=== PATIENT | female | born 1940 | race Two or more races ===

== ENCOUNTER 2017-03-20 11:45 | Emergency (ER) | payer OTHER ==
[~2017-03-20] VITALS: Ht 154.9 cm; Wt 59.9 kg
[~2017-03-20 11:45] MED LIST: ALEN35TA29 PO; BENA10TA2 PO; LEVO50TA8 PO; OMEP40CA37 PO
[2017-03-20] MEDS ORDERED: BENAZEPRIL HCL 20 MG TABLET PO (12:05)
[2017-03-20] MEDS ORDERED: PREDNISONE 5 MG TABLET PO (12:05)
[2017-03-20] MEDS ORDERED: CALC-860 PO (12:05)
[2017-03-20] MEDS ORDERED: AMLO5TAB2 PO (12:05)
[2017-03-20] MEDS ORDERED: PROLIA 60 MG/ML SYRINGE SQ (12:05)
[2017-03-20] MEDS ORDERED: METHOTREXATE 2.5 MG TABLET PO (12:05)
[2017-03-20] MEDS ORDERED: FOLI1TAB16 PO (12:05)
[2017-03-20] MEDS ORDERED: OMEG1CAP74 PO (12:05)
[2017-03-20] MEDS ORDERED: OMEPRAZOLE DR 20 MG CAPSULE PO (12:05)
[2017-03-20 12:55] LABS: BASOPHILS % (AUTO) 0.8 % (0.0-2.0); EOSINOPHILS # (AUTO) 0.3 K/uL (0.0-0.7); EOSINOPHILS % (AUTO) 5.3 % (0.0-7.0); HEMATOCRIT 35.8 % (37-47); HEMOGLOBIN 11.8 G/DL (12.0-16.0); LYMPHOCYTES # (AUTO) 1.7 K/UL (0.8-4.8); LYMPHOCYTES % (AUTO) 27.4 % (20.5-51.5); MEAN CORPUSCULAR HEMOGLOBIN 32.8 UUG (27.0-31.0); MEAN CORPUSCULAR HGB CONC 33 g/dL (32.0-37.0); MEAN CORPUSCULAR VOLUME 99.9 FL (81.0-99.0); MONOCYTES # (AUTO) 0.6 K/UL (0.1-1.30); MONOCYTES % (AUTO) 9.8 % (0.0-11.0); NEUTROPHILS # (AUTO) 3.5 K/UL (1.8-8.9); NEUTROPHILS % (AUTO) 56.7 % (38.5-71.5); PLATELET COUNT (AUTO) 333 K/UL (150-450); RED BLOOD CELL COUNT(AUTO) 3.58 MIL/UL (4.2-5.4); WHITE BLOOD COUNT (AUTO) 6.1 K/UL (4.0-11.2)
[2017-03-20 13:05] LABS: CARBON DIOXIDE 28 mmol/L (21-32); CHLORIDE 105 mmol/L (98-107); CREATININE 1.2 mg/dL (0.6-1.3); GLUCOSE 89 mg/dL (74-106); POTASSIUM 4.6 mmol/L (3.5-5.1); UREA NITROGEN, BLOOD 18 mg/dL (7-18)
[2017-03-20 13:18] LABS: ALANINE AMINOTRANSFERASE 28 U/L (14-59); ALKALINE PHOSPHATASE 40 U/L (50-136); ASPARTATE AMINOTRANSFERASE 37 U/L (15-37); BILIRUBIN,TOTAL 0.3 mg/dL (0.2-1.0)
[2017-03-20] MEDS ORDERED: FUROSEMIDE 20 MG TABLET PO ONE (14:00)
--- NOTE | 2017-03-20 14:10 | NUR ---
PT WAS EVALUATED BY DR PONCE. PT WAS D/C TO HOME. D/C INSTRUCTIONS GIVEN TO THE PT.
[2017-03-20 14:11] VITALS: BP 136/78
[2017-03-20] MEDS ORDERED: FUROSEMIDE 20 MG TABLET ONE (14:17)
== END 2017-03-20 14:12 | disposition home or self-care (01) ==
LOC: ER 11:45
DX: R60.0 Localized edema (principal); I10 Essential (primary) hypertension; K21.9 Gastro-esophageal reflux disease without esophagitis; M19.90 Unspecified osteoarthritis, unspecified site; E03.9 Hypothyroidism, unspecified; Z88.1 Allergy status to other antibiotic agents; Z88.0 Allergy status to penicillin
CPT/HCPCS: 36415; 80053; 83880; 84484; 85025; 99284; A4663; 70030-TC

== ENCOUNTER 2017-04-12 12:43 | Emergency (ER) | payer OTHER ==
[~2017-04-12] VITALS: Ht 154.9 cm; Wt 57.6 kg
[~2017-04-12 12:43] MED LIST changes: -ALEN35TA29 PO; +AMLO5TAB2 PO; -BENA10TA2 PO; +BENAZEPRIL HCL 20 MG TABLET PO; +CALC-860 PO; +FOLI1TAB16 PO; -LEVO50TA8 PO; +METHOTREXATE 2.5 MG TABLET PO; +OMEG1CAP74 PO; -OMEP40CA37 PO; +OMEPRAZOLE DR 20 MG CAPSULE PO; +PREDNISONE 5 MG TABLET PO; +PROLIA 60 MG/ML SYRINGE SQ
[2017-04-12] MEDS ORDERED: FUROSEMIDE 40 MG TABLET PO (12:54)
[2017-04-12] MEDS ORDERED: IV NORMAL SALINE 1000 ML BAG IV ONE (13:45)
[2017-04-12] MEDS ORDERED: MORPHINE SULFATE 2 MG/1 ML DISP.SYRIN IV ONE (13:45)
[2017-04-12] MEDS ORDERED: ONDANSETRON 4 MG/2 ML VIAL IV ONE (13:45)
[2017-04-12 13:52] LABS: BASOPHILS % (AUTO) 0.3 % (0.0-2.0); EOSINOPHILS # (AUTO) 0.2 K/uL (0.0-0.7); EOSINOPHILS % (AUTO) 1.3 % (0.0-7.0); HEMATOCRIT 35.8 % (31.2-41.9); HEMOGLOBIN 11.9 g/dL (10.9-14.3); LYMPHOCYTES # (AUTO) 2.5 K/uL (20.0-40.0); LYMPHOCYTES % (AUTO) 20.2 % (20.5-51.5); MEAN CORPUSCULAR HEMOGLOBIN 33.1 uug (24.7-32.8); MEAN CORPUSCULAR HGB CONC 33 g/dL (32.3-35.6); MEAN CORPUSCULAR VOLUME 99.5 fL (75.5-95.3); MONOCYTES # (AUTO) 1.2 K/uL (2.0-10.0); MONOCYTES % (AUTO) 9.5 % (0.0-11.0); NEUTROPHILS # (AUTO) 8.4 K/uL (1.8-8.9); NEUTROPHILS % (AUTO) 68.7 % (38.5-71.5); PLATELET COUNT (AUTO) 246 K/uL (179-408); RED BLOOD CELL COUNT(AUTO) 3.59 MIL/uL (3.63-4.92); WHITE BLOOD COUNT (AUTO) 12.3 K/uL (3.8-11.8)
[2017-04-12] MEDS ORDERED: MORPHINE SULFATE 2 MG/1 ML DISP.SYRIN ONE (13:59)
[2017-04-12] MEDS ORDERED: ONDANSETRON 4 MG/2 ML VIAL ONE (13:59)
[2017-04-12 14:06] LABS: CARBON DIOXIDE 25 mmol/L (21-32); CHLORIDE 100 mmol/L (98-107); CREATININE 1.4 mg/dL (0.6-1.3); GLUCOSE 85 mg/dL (74-106); POTASSIUM 4.3 mmol/L (3.5-5.1); UREA NITROGEN, BLOOD 30 mg/dL (7-18)
[2017-04-12 14:19] LABS: ALANINE AMINOTRANSFERASE 20 U/L (14-59); ALKALINE PHOSPHATASE 52 U/L (50-136); ASPARTATE AMINOTRANSFERASE 24 U/L (15-37); BILIRUBIN,DIRECT 0.1 mg/dL (0.0-0.2); BILIRUBIN,TOTAL 0.4 mg/dL (0.2-1.0); LIPASE 110 U/L (73-393); TOTAL PROTEIN, SERUM 7.2 g/dL (6.4-8.2)
--- NOTE | 2017-04-12 16:24 | NUR ---
Patient discharged to home in stable conditon with family. Written and verbal after care instructions given. Patient verbalizes understanding of instructions. Stressed follow up with pmd.
[2017-04-12 16:26] VITALS: BP 114/70
== END 2017-04-12 16:27 | disposition home or self-care (01) ==
LOC: ER 12:45
DX: K62.89 Other specified diseases of anus and rectum (principal); I10 Essential (primary) hypertension; I70.0 Atherosclerosis of aorta; K21.9 Gastro-esophageal reflux disease without esophagitis; M19.90 Unspecified osteoarthritis, unspecified site; Z87.891 Personal history of nicotine dependence; Z88.0 Allergy status to penicillin; Z88.8 Allergy status to other drugs, medicaments and biological substances; E03.9 Hypothyroidism, unspecified; Z90.49 Acquired absence of other specified parts of digestive tract
CPT/HCPCS: 36415; 70030-TC; 71010; 83690; 85025; 93005; A4663; J2270; J2405; J7030

== ENCOUNTER 2017-04-15 11:18 | Emergency (ER) | payer OTHER ==
[~2017-04-15] VITALS: Ht 154.9 cm; Wt 59.0 kg
[~2017-04-15 11:18] MED LIST changes: +FUROSEMIDE 40 MG TABLET PO
[2017-04-15] MEDS ORDERED: IV NORMAL SALINE 1000 ML BAG IV ONE (11:45)
[2017-04-15 12:25] LABS: BASOPHILS % (AUTO) 0.5 % (0.0-2.0); EOSINOPHILS # (AUTO) 0.2 K/uL (0.0-0.7); EOSINOPHILS % (AUTO) 2.3 % (0.0-7.0); HEMATOCRIT 34.2 % (31.2-41.9); HEMOGLOBIN 11.4 g/dL (10.9-14.3); LYMPHOCYTES # (AUTO) 1.5 K/uL (20.0-40.0); LYMPHOCYTES % (AUTO) 16.4 % (20.5-51.5); MEAN CORPUSCULAR HEMOGLOBIN 33.4 uug (24.7-32.8); MEAN CORPUSCULAR HGB CONC 33 g/dL (32.3-35.6); MEAN CORPUSCULAR VOLUME 99.9 fL (75.5-95.3); MONOCYTES % (AUTO) 11.4 % (0.0-11.0); NEUTROPHILS # (AUTO) 6.2 K/uL (1.8-8.9); NEUTROPHILS % (AUTO) 69.4 % (38.5-71.5); PLATELET COUNT (AUTO) 245 K/uL (179-408); RED BLOOD CELL COUNT(AUTO) 3.42 MIL/uL (3.63-4.92); WHITE BLOOD COUNT (AUTO) 8.9 K/uL (3.8-11.8)
[2017-04-15 12:50] LABS: ALANINE AMINOTRANSFERASE 15 U/L (14-59); ALKALINE PHOSPHATASE 42 U/L (50-136); ASPARTATE AMINOTRANSFERASE 20 U/L (15-37); BILIRUBIN,DIRECT 0.1 mg/dL (0.0-0.2); BILIRUBIN,TOTAL 0.2 mg/dL (0.2-1.0); CARBON DIOXIDE 21 mmol/L (21-32); CHLORIDE 102 mmol/L (98-107); CREATININE 1.4 mg/dL (0.6-1.3); GLUCOSE 102 mg/dL (74-106); POTASSIUM 4.1 mmol/L (3.5-5.1); TOTAL PROTEIN, SERUM 6.3 g/dL (6.4-8.2); UREA NITROGEN, BLOOD 13 mg/dL (7-18)
--- NOTE | 2017-04-15 13:32 | NUR ---
Patient discharged to home in stable conditon. Written and verbal after care instructions given. Patient verbalizes understanding of instructions.pt walks in steady gait. pt accompanied by and grand daughter.
[2017-04-15 13:33] VITALS: BP 119/61
== END 2017-04-15 13:49 | disposition home or self-care (01) ==
LOC: ER 11:18
DX: R55 Syncope and collapse (principal); R42 Dizziness and giddiness; E03.9 Hypothyroidism, unspecified; E86.0 Dehydration; I10 Essential (primary) hypertension; I70.0 Atherosclerosis of aorta; J40 Bronchitis, not specified as acute or chronic; K21.9 Gastro-esophageal reflux disease without esophagitis; M19.90 Unspecified osteoarthritis, unspecified site; Z88.0 Allergy status to penicillin; F17.200 Nicotine dependence, unspecified, uncomplicated
CPT/HCPCS: 36415; 70030-TC; 71010; 85025; 85730; 93005; A4663; J7030

== ENCOUNTER 2017-05-03 09:10 | Emergency (ER) | payer OTHER ==
[~2017-05-03] VITALS: Ht 154.9 cm; Wt 59.0 kg
[2017-05-03] MEDS ORDERED: IV NORMAL SALINE 500 ML BAG IV ONE (10:00)
[2017-05-03] MEDS ORDERED: IV NORMAL SALINE 250 ML IV ONE (10:07)
[2017-05-03] MEDS ORDERED: IOHEXOL 300MG/ML 100 ML INFUS..BTL ONE (10:07)
[2017-05-03 10:10] LABS: MONOCYTES # (AUTO) 1.2 K/uL (2.0-10.0); RED BLOOD CELL COUNT(AUTO) 3.62 MIL/uL (3.63-4.92)
[2017-05-03 10:16] LABS: ALANINE AMINOTRANSFERASE 16 U/L (14-59); ALKALINE PHOSPHATASE 36 U/L (50-136); ASPARTATE AMINOTRANSFERASE 18 U/L (15-37); BILIRUBIN,DIRECT 0.1 mg/dL (0.0-0.2); BILIRUBIN,TOTAL 0.3 mg/dL (0.2-1.0); CARBON DIOXIDE 25 mmol/L (21-32); CHLORIDE 104 mmol/L (98-107); CREATININE 1.3 mg/dL (0.6-1.3); GLUCOSE 93 mg/dL (74-106); LIPASE 75 U/L (73-393); POTASSIUM 3.6 mmol/L (3.5-5.1); TOTAL PROTEIN, SERUM 6.6 g/dL (6.4-8.2); UREA NITROGEN, BLOOD 9 mg/dL (7-18)
[2017-05-03 10:27] LABS: BASOPHILS % (AUTO) 0.5 % (0.0-2.0); EOSINOPHILS # (AUTO) 0.1 K/uL (0.0-0.7); EOSINOPHILS % (AUTO) 2.4 % (0.0-7.0); HEMATOCRIT 35.3 % (31.2-41.9); LYMPHOCYTES % (AUTO) 31.7 % (20.5-51.5); MEAN CORPUSCULAR HEMOGLOBIN 33.2 uug (24.7-32.8); MEAN CORPUSCULAR HGB CONC 34 g/dL (32.3-35.6); MEAN CORPUSCULAR VOLUME 97.6 fL (75.5-95.3); MONOCYTES % (AUTO) 19.1 % (0.0-11.0); NEUTROPHILS # (AUTO) 2.9 K/uL (1.8-8.9); NEUTROPHILS % (AUTO) 46.3 % (38.5-71.5); PLATELET COUNT (AUTO) 296 K/uL (179-408); WHITE BLOOD COUNT (AUTO) 6.2 K/uL (3.8-11.8)
[2017-05-03 10:40] LABS: *BILIRUBIN,URIN NEGATIVE (NEGATIVE); *BLOOD, URINE NEGATIVE (NEGATIVE); *CLARITY,URINE CLEAR (CLEAR); *KETONES,URINE NEGATIVE (NEGATIVE); *PROTEIN,URINE NEGATIVE (NEGATIVE); *UROBILINOGEN,URINE 0.2 E.U./dl (NORMAL); LEUKOCYTE ESTERASE ,URINE NEGATIVE (NEGATIVE); NITRITE, URINE NEGATIVE (NEGATIVE); UGLUCOSE NEGATIVE (NEGATIVE)
[2017-05-03 10:48] LABS: *COLOR,URINE LIGHT YELLOW (YELLOW)
[2017-05-03 10:49] LABS: BACTERIA,URINE NONE SEEN /HPF (NONE SEEN); RBC,URINE NONE SEEN /HPF (0-3); SQUAMOUS EPITHELIAL CELL,UR FEW /HPF (NONE SEEN); WBC,URINE 0-3 /HPF (0-3)
[2017-05-03] MEDS ORDERED: CIPROFLOXACIN HCL 250 MG TABLET PO ONE (12:00)
[2017-05-03] MEDS ORDERED: METRONIDAZOLE 500 MG TABLET PO ONE (12:00)
[2017-05-03] MEDS ORDERED: CIPROFLOXACIN HCL 250 MG TABLET ONE (12:21)
[2017-05-03] MEDS ORDERED: METRONIDAZOLE 500 MG TABLET ONE (12:21)
[2017-05-03 12:38] LABS: BAND % (MANUAL) 5 % (0-10); EOSINOPHILS % (MANUAL) 3 % (0-8); LYMPHOCYTES % (MANUAL) 38 % (20-40); MONOCYTES % (MANUAL) 16 % (2-10); NEUTROPHILS % (MANUAL) 38 % (42-75)
[2017-05-03 13:19] VITALS: BP 126/76
--- NOTE | 2017-05-03 13:21 | NUR ---
PT WAS EVALUATED BY DR DANIELS. PT WAS D/C TO HOME AFTER EVALUATION. D/C INSTRUCTIONS GIVEN TO THE PT AND TO HER FAMILY.
== END 2017-05-03 13:28 | disposition home or self-care (01) ==
LOC: ER 09:10
DX: K52.9 Noninfective gastroenteritis and colitis, unspecified (principal); I10 Essential (primary) hypertension; K21.9 Gastro-esophageal reflux disease without esophagitis; Z88.0 Allergy status to penicillin; Z90.49 Acquired absence of other specified parts of digestive tract; F17.200 Nicotine dependence, unspecified, uncomplicated; Z88.1 Allergy status to other antibiotic agents; E03.9 Hypothyroidism, unspecified
CPT/HCPCS: 36415; 83690; 85025; A4663; J7030; J7050; Q9967

== ENCOUNTER 2021-11-14 15:52 | Emergency (ER) | payer MEDICARE, OTHER ==
[~2021-11-14] VITALS: Ht 154.9 cm; Wt 45.8 kg
[~2021-11-14 15:52] MED LIST changes: +AMLO-212 PO; -AMLO5TAB2 PO; +CALC-1210 PO; -CALC-860 PO; -FOLI1TAB16 PO; +FOLI1TAB94 PO
[2021-11-14] MEDS ORDERED: IV NORMAL SALINE 1000 ML BAG IV ONE (16:30)
[2021-11-14 16:43] LABS: HEMATOCRIT 36.8 % (31.2-41.9); MEAN CORPUSCULAR HEMOGLOBIN 32.5 uug (24.7-32.8); PLATELET COUNT (AUTO) 274 K/uL (179-408)
[2021-11-14 16:57] LABS: ALKALINE PHOSPHATASE 63 U/L (50-136); ASPARTATE AMINOTRANSFERASE 22 U/L (15-37); BILIRUBIN,DIRECT 0.1 mg/dL (0.0-0.2); BILIRUBIN,TOTAL 0.4 mg/dL (0.2-1.0); CARBON DIOXIDE 21 mmol/L (21-32); CHLORIDE 99 mmol/L (98-107); CREATININE 1.8 mg/dL (0.6-1.3); GLUCOSE 110 mg/dL (74-106); LIPASE 98 U/L (73-393); POTASSIUM 4.1 mmol/L (3.5-5.1); TOTAL PROTEIN, SERUM 7.8 g/dL (6.4-8.2); UREA NITROGEN, BLOOD 33 mg/dL (7-18)
[2021-11-14 17:40] LABS: ALANINE AMINOTRANSFERASE 15 U/L (14-59)
[2021-11-14] MEDS ORDERED: METRONIDAZOLE 500 MG/NS 100ML 100 ML IV ONE ×2 (17:45→17:46)
[2021-11-14] MEDS ORDERED: levoFLOXacin 750MG/D5W 150 ML IV ONE ×2 (17:45→17:46)
--- NOTE | 2021-11-14 18:05 | NUR ---
Paged Package Concierge for panel call.
[2021-11-14 18:16] LABS: *OCCULT BLOOD STOOL POSITIVE (NEGATIVE)
[2021-11-14] MEDS ORDERED: OMEP20TA5 PO (18:54)
[2021-11-14] MEDS ORDERED: BENA20TA9 PO (18:54)
[2021-11-14] MEDS ORDERED: LEFL20TA PO (18:54)
[2021-11-14] MEDS ORDERED: LEVO50TA8 PO (18:54)
[2021-11-14] MEDS ORDERED: DENO60DI SQ (18:54)
[2021-11-14] MEDS ORDERED: ROSU5TAB PO (18:54)
[2021-11-14] MEDS ORDERED: ACETAMINOPHEN 650 MG SUPP.RECT RC PRN (19:15)
[2021-11-14] MEDS ORDERED: PANTOPRAZOLE SODIUM 40 MG VIAL IV SCH (19:15)
[2021-11-14] MEDS ORDERED: MORPHINE SULFATE 4 MG/1 ML DISP.SYRIN IV PRN (19:15)
[2021-11-14] MEDS ORDERED: IV D5/ 0.9% NACL 1,000 ML IV PRN (19:15)
[2021-11-14] MEDS ORDERED: MORPHINE SULFATE 2 MG/1 ML DISP.SYRIN IV PRN (19:15)
[2021-11-14] MEDS ORDERED: ONDANSETRON 4 MG/2 ML VIAL IV PRN (19:15)
--- NOTE | 2021-11-14 20:50 | NUR ---
assisted pt to bathroom, changed diaper. pt has dark diarrhea.
[2021-11-14] MEDS ORDERED: PANTOPRAZOLE SODIUM 40 MG VIAL ONE (21:29)
--- NOTE | 2021-11-14 23:36 | NUR ---
Report given to Crystal GRANT
[2021-11-14] MEDS ORDERED: CEFTRIAXONE 1 G in IV DEXTROSE 5% 50 ML IV SCH (23:48)
--- NOTE | 2021-11-15 01:24 | NUR ---
pt will be transfered to [facility] Room 4209 . Report given to Yesica GRANT.
--- NOTE | 2021-11-15 01:32 | NUR ---
0430 ETA for transfer to [facility]
[2021-11-15] MEDS ORDERED: METRONIDAZOLE 500 MG/NS 100ML 500 MG in PREMIXED 1 EACH IV SCH (02:00)
--- NOTE | 2021-11-15 05:35 | NUR ---
[facility] here for transport to [facility].
[2021-11-15] MEDS ORDERED: LEVOTHYROXINE SODIUM 50 MCG TABLET PO SCH (07:00)
== END 2021-11-15 05:39 | disposition short-term general hospital (02) ==
LOC: ER 15:52 → UNDOADMIN 23:37 → MEDSURG3 23:37 → ER 11-15 05:39 → UNDODISIN 11-15 05:48
DX: K52.9 Noninfective gastroenteritis and colitis, unspecified (principal); N17.0 Acute kidney failure with tubular necrosis; E44.0 Moderate protein-calorie malnutrition; Z68.1 Body mass index [BMI] 19.9 or less, adult; E87.1 Hypo-osmolality and hyponatremia; E86.1 Hypovolemia; E78.5 Hyperlipidemia, unspecified; M06.9 Rheumatoid arthritis, unspecified; I10 Essential (primary) hypertension; E03.9 Hypothyroidism, unspecified; I71.4 Abdominal aortic aneurysm, without rupture; K21.9 Gastro-esophageal reflux disease without esophagitis; Z79.899 Other long term (current) drug therapy; F17.290 Nicotine dependence, other tobacco product, uncomplicated; Z20.822 Contact with and (suspected) exposure to COVID-19
CPT/HCPCS: 99285; 74176; 96365; 71045; 96366; 96375; 99406; 82270; 80076; 80048; 86625; 83690; 85025; 85730; 87040 ×2; 87493; 87046; 89055; 36415; 93005; 96368; 83605; 87015; 87899; 87427; 87426; 84145 ×2; J1956; J3490; C9113; J7040; A4663; G0378; J0696

== ENCOUNTER 2023-11-06 10:59 | Inpatient (IN) | payer MEDICARE, OTHER ==
[~2023-11-06] VITALS: Ht 154.9 cm; Wt 44.5 kg
[~2023-11-06 10:59] MED LIST changes: -AMLO-212 PO; +BENA20TA9 PO; -BENAZEPRIL HCL 20 MG TABLET PO; -CALC-1210 PO; +DENO60DI SQ; -FOLI1TAB94 PO; -FUROSEMIDE 40 MG TABLET PO; +LEFL20TA PO; +LEVO50TA8 PO; -METHOTREXATE 2.5 MG TABLET PO; -OMEG1CAP74 PO; +OMEP20TA5 PO; -OMEPRAZOLE DR 20 MG CAPSULE PO; -PREDNISONE 5 MG TABLET PO; -PROLIA 60 MG/ML SYRINGE SQ; +ROSU5TAB PO
[2023-11-06] MEDS ORDERED: SODI650T PO (11:21)
[2023-11-06 11:39] LABS: BASOPHILS % (AUTO) 0.6 % (0.0-2.0); EOSINOPHILS # (AUTO) 0.2 K/uL (0.0-0.7); EOSINOPHILS % (AUTO) 2.6 % (0.0-7.0); HEMATOCRIT 33.9 % (31.2-41.9); HEMOGLOBIN 10.7 g/dL (10.9-14.3); LYMPHOCYTES # (AUTO) 1.4 K/uL (0.8-4.8); LYMPHOCYTES % (AUTO) 21.4 % (20.5-51.5); MEAN CORPUSCULAR HEMOGLOBIN 29.8 uug (24.7-32.8); MEAN CORPUSCULAR HGB CONC 32 g/dL (32.3-35.6); MEAN CORPUSCULAR VOLUME 94.5 fL (75.5-95.3); MONOCYTES # (AUTO) 0.5 K/uL (0.1-1.30); MONOCYTES % (AUTO) 7.7 % (0.0-11.0); NEUTROPHILS # (AUTO) 4.5 K/uL (1.8-8.9); NEUTROPHILS % (AUTO) 67.7 % (38.5-71.5); PLATELET COUNT (AUTO) 272 K/uL (179-408); RED BLOOD CELL COUNT(AUTO) 3.59 MIL/uL (3.63-4.92); RED CELL DISTRIBUTION WIDTH 14.6 % (12.3-17.7); WHITE BLOOD COUNT (AUTO) 6.6 K/uL (3.8-11.8)
[2023-11-06 11:42] LABS: DIFFERENTIAL COMMENT 1
[2023-11-06] MEDS ORDERED: ADENOSINE 6 MG/2 ML SYR IV ONE (11:45)
[2023-11-06] MEDS: ADENOSINE 6 MG/2 ML SYR IV ONE (11:51)
[2023-11-06 12:06] LABS: CALCIUM 9.7 mg/dL (8.5-10.1); CARBON DIOXIDE 21 mmol/L (21-32); CHLORIDE 103 mmol/L (98-107); GLUCOSE 112 mg/dL (74-106); POTASSIUM 4.7 mmol/L (3.5-5.1); SODIUM SERUM 137 mmol/L (136-145); UREA NITROGEN, BLOOD 41 mg/dL (7-18)
[2023-11-06 12:19] LABS: ALANINE AMINOTRANSFERASE 19 U/L (14-59); ALBUMIN 3.3 g/dL (3.4-5.0); ALKALINE PHOSPHATASE 57 U/L (50-136); ASPARTATE AMINOTRANSFERASE 29 U/L (15-37); BILIRUBIN,DIRECT 0.1 mg/dL (0.0-0.2); BILIRUBIN,TOTAL 0.5 mg/dL (0.2-1.0); NT-PRO BNP 996 pg/mL (0-125); TOTAL PROTEIN, SERUM 7.2 g/dL (6.4-8.2)
[2023-11-06 16:39] VITALS: BP 157/75; TEMP 97.8; O2SAT 98
[2023-11-06] MEDS ORDERED: ONDANSETRON 4 MG/2 ML VIAL IV PRN (17:30)
[2023-11-06] MEDS ORDERED: TEMAZEPAM 15 MG CAPSULE PO PRN (17:30)
[2023-11-06] MEDS: IV 1/2NS 1000 ML 1,000 ML IV PRN (20:16)
[2023-11-06 20:24] VITALS: BP 124/54; TEMP 98.2; O2SAT 98
[2023-11-06] MEDS: DOCUSATE SODIUM 100 MG CAPSULE PO SCH (20:28)
[2023-11-06] MEDS: METOPROLOL TARTRATE 5 MG/5 ML VIAL IVP ONE (20:29)
[2023-11-06] MEDS: ENOXAPARIN SODIUM 40 MG/0.4 ML DISP.SYRIN SQ ONE (20:36)
[2023-11-06] MEDS ORDERED: METOPROLOL TARTRATE 25 MG TABLET PO SCH (21:00)
[2023-11-06] MEDS ORDERED: METOPROLOL TARTRATE 50 MG TABLET PO SCH (22:00)
[2023-11-06 22:11] VITALS: BP 152/79; TEMP 98.5; O2SAT 95
[2023-11-06 22:30] VITALS: BP 143/80; O2SAT 95
[2023-11-06] MEDS: hydrALAZINE HCL 25 MG TABLET PO PRN (22:58)
[2023-11-06 23:00] VITALS: BP 173/67; O2SAT 95
[2023-11-07] VITALS (22 sets, daily range): BP systolic 77–171; BP diastolic 44–118; TEMP 97–98.5; O2SAT 93–96
[2023-11-07] MEDS: ACETAMINOPHEN 325 MG TABLET PO PRN (00:01)
[2023-11-07] MEDS: TEMAZEPAM 7.5 MG CAPSULE PO PRN (01:53)
[2023-11-07] MEDS ORDERED: hydrALAZINE HCL 20 MG/1 ML VIAL IV PRN (02:30)
[2023-11-07 05:38] LABS: BASOPHILS # (AUTO) 0.1 K/UL (0.0-0.2); BASOPHILS % (AUTO) 0.9 % (0.0-2.0); EOSINOPHILS # (AUTO) 0.3 K/uL (0.0-0.7); EOSINOPHILS % (AUTO) 4.2 % (0.0-7.0); HEMATOCRIT 28.1 % (31.2-41.9); HEMOGLOBIN 9.2 g/dL (10.9-14.3); LYMPHOCYTES # (AUTO) 2.5 K/uL (0.8-4.8); LYMPHOCYTES % (AUTO) 42.1 % (20.5-51.5); MEAN CORPUSCULAR HEMOGLOBIN 30.4 uug (24.7-32.8); MEAN CORPUSCULAR HGB CONC 33 g/dL (32.3-35.6); MEAN CORPUSCULAR VOLUME 93.3 fL (75.5-95.3); MONOCYTES # (AUTO) 0.6 K/uL (0.1-1.30); MONOCYTES % (AUTO) 10.1 % (0.0-11.0); NEUTROPHILS # (AUTO) 2.6 K/uL (1.8-8.9); NEUTROPHILS % (AUTO) 42.7 % (38.5-71.5); PLATELET COUNT (AUTO) 245 K/uL (179-408); RED BLOOD CELL COUNT(AUTO) 3.02 MIL/uL (3.63-4.92); RED CELL DISTRIBUTION WIDTH 14.5 % (12.3-17.7)
[2023-11-07 05:49] LABS: DIFFERENTIAL COMMENT 1
[2023-11-07 05:59] LABS: ALANINE AMINOTRANSFERASE 19 U/L (14-59); ALBUMIN 2.8 g/dL (3.4-5.0); ALKALINE PHOSPHATASE 46 U/L (50-136); ASPARTATE AMINOTRANSFERASE 25 U/L (15-37); BILIRUBIN,TOTAL 0.5 mg/dL (0.2-1.0); CALCIUM 8.6 mg/dL (8.5-10.1); CARBON DIOXIDE 22 mmol/L (21-32); CHLORIDE 106 mmol/L (98-107); CHOLESTEROL 112 mg/dL (<200); CREATININE 1.8 mg/dL (0.6-1.3); GLUCOSE 83 mg/dL (74-106); HDL CHOLESTEROL 62 mg/dL (40-60); MAGNESIUM 1.5 mg/dL (1.8-2.4); PHOSPHOROUS 3.6 mg/dL (2.5-4.9); POTASSIUM 4.6 mmol/L (3.5-5.1); SODIUM SERUM 136 mmol/L (136-145); TOTAL PROTEIN, SERUM 6.1 g/dL (6.4-8.2); TRIGLYCERIDES 55 MG/DL (30-150); UREA NITROGEN, BLOOD 38 mg/dL (7-18)
[2023-11-07] MEDS: METOPROLOL TARTRATE 50 MG TABLET PO SCH ×2 (06:00→20:59)
[2023-11-07] MEDS: LEVOTHYROXINE SODIUM 25 MCG TABLET PO SCH (06:23)
[2023-11-07] MEDS: PANTOPRAZOLE SODIUM 40 MG TABLET.DR PO SCH (06:23)
[2023-11-07] MEDS ORDERED: LEVOTHYROXINE SODIUM 50 MCG TABLET PO SCH (07:00)
[2023-11-07] MEDS: ASPIRIN EC 81 MG TABLET.DR PO SCH (09:16)
[2023-11-07] MEDS: MAGNESIUM SULFATE/D5W 100 ML IV SCH (11:38)
[2023-11-07] MEDS: ENOXAPARIN SODIUM 40 MG/0.4 ML DISP.SYRIN SQ SCH (20:57)
[2023-11-07 21:21] LABS: *BILIRUBIN,URIN NEGATIVE (NEGATIVE); *BLOOD, URINE NEGATIVE (NEGATIVE); *CLARITY,URINE CLEAR (CLEAR); *COLOR,URINE LIGHT YELLOW (YELLOW); *KETONES,URINE NEGATIVE (NEGATIVE); *PROTEIN,URINE NEGATIVE (NEGATIVE); *UROBILINOGEN,URINE 0.2 E.U./dl (NORMAL); LEUKOCYTE ESTERASE ,URINE TRACE (NEGATIVE); NITRITE, URINE NEGATIVE (NEGATIVE); PH,URINE 5.5 (5.0-8.0); UGLUCOSE NEGATIVE (NEGATIVE)
[2023-11-07 21:27] LABS: BACTERIA,URINE NONE SEEN /HPF (NONE SEEN); RBC,URINE 0-3 /HPF (0-3); SQUAMOUS EPITHELIAL CELL,UR FEW /HPF (NONE SEEN); WBC,URINE 0-3 /HPF (0-3)
[2023-11-07 21:28] LABS: *URINE TOTAL PROTEIN RANDOM 7.2 mg/dL (<150/24HR)
[2023-11-08 00:04] VITALS: BP 161/72; TEMP 97.8; O2SAT 95
[2023-11-08 10:11] LABS: BASOPHILS # (AUTO) 0.1 K/UL (0.0-0.2); BASOPHILS % (AUTO) 0.8 % (0.0-2.0); EOSINOPHILS # (AUTO) 0.3 K/uL (0.0-0.7); EOSINOPHILS % (AUTO) 5.6 % (0.0-7.0); HEMATOCRIT 30.7 % (31.2-41.9); HEMOGLOBIN 9.8 g/dL (10.9-14.3); LYMPHOCYTES # (AUTO) 2.1 K/uL (0.8-4.8); LYMPHOCYTES % (AUTO) 34.9 % (20.5-51.5); MEAN CORPUSCULAR HEMOGLOBIN 29.9 uug (24.7-32.8); MEAN CORPUSCULAR HGB CONC 32 g/dL (32.3-35.6); MEAN CORPUSCULAR VOLUME 93.5 fL (75.5-95.3); MONOCYTES # (AUTO) 0.6 K/uL (0.1-1.30); MONOCYTES % (AUTO) 9.7 % (0.0-11.0); PLATELET COUNT (AUTO) 265 K/uL (179-408); RED BLOOD CELL COUNT(AUTO) 3.29 MIL/uL (3.63-4.92); RED CELL DISTRIBUTION WIDTH 14.2 % (12.3-17.7); WHITE BLOOD COUNT (AUTO) 6.1 K/uL (3.8-11.8)
[2023-11-08 11:32] LABS: ALANINE AMINOTRANSFERASE 18 U/L (14-59); ALBUMIN 2.8 g/dL (3.4-5.0); ALKALINE PHOSPHATASE 48 U/L (50-136); ASPARTATE AMINOTRANSFERASE 23 U/L (15-37); BILIRUBIN,TOTAL 0.5 mg/dL (0.2-1.0); CARBON DIOXIDE 22 mmol/L (21-32); CHLORIDE 109 mmol/L (98-107); CREATININE 1.9 mg/dL (0.6-1.3); GLUCOSE 82 mg/dL (74-106); IRON, SERUM 72 ug/dL (50-175); MAGNESIUM 2.5 mg/dL (1.8-2.4); PHOSPHOROUS 3.4 mg/dL (2.5-4.9); SODIUM SERUM 141 mmol/L (136-145); TOTAL PROTEIN, SERUM 6.3 g/dL (6.4-8.2); UREA NITROGEN, BLOOD 41 mg/dL (7-18)
[2023-11-08 12:00] VITALS: BP 138/64; TEMP 98.6; O2SAT 97
[2023-11-08 12:24] LABS: DIFFERENTIAL COMMENT 1
[2023-11-08 14:59] LABS: CREATINE KINASE, TOTAL 88 U/L (26-192)
[2023-11-08 16:03] VITALS: BP 98/51; TEMP 97; O2SAT 97
[2023-11-08 20:00] VITALS: BP 103/54; TEMP 97.9; O2SAT 95
[2023-11-09 00:04] VITALS: BP 100/56; TEMP 97.6; O2SAT 94
[2023-11-09 04:00] VITALS: BP 100/52; TEMP 97.9; O2SAT 99
[2023-11-09 05:08] LABS: PTH, INTACT 65 pg/mL (15-65)
[2023-11-09 07:13] LABS: CALCIUM 8.6 mg/dL (8.5-10.1); CARBON DIOXIDE 24 mmol/L (21-32); CHLORIDE 107 mmol/L (98-107); CREATININE 1.8 mg/dL (0.6-1.3); GLUCOSE 84 mg/dL (74-106); PHOSPHOROUS 2.9 mg/dL (2.5-4.9); POTASSIUM 4.8 mmol/L (3.5-5.1); SODIUM SERUM 138 mmol/L (136-145); UREA NITROGEN, BLOOD 34 mg/dL (7-18)
[2023-11-09 07:35] LABS: BASOPHILS # (AUTO) 0.1 K/UL (0.0-0.2); BASOPHILS % (AUTO) 0.8 % (0.0-2.0); EOSINOPHILS # (AUTO) 0.4 K/uL (0.0-0.7); EOSINOPHILS % (AUTO) 6.7 % (0.0-7.0); HEMATOCRIT 30.7 % (31.2-41.9); HEMOGLOBIN 9.9 g/dL (10.9-14.3); LYMPHOCYTES # (AUTO) 2.6 K/uL (0.8-4.8); LYMPHOCYTES % (AUTO) 42.5 % (20.5-51.5); MEAN CORPUSCULAR HEMOGLOBIN 30.4 uug (24.7-32.8); MEAN CORPUSCULAR HGB CONC 32 g/dL (32.3-35.6); MEAN CORPUSCULAR VOLUME 94.6 fL (75.5-95.3); MONOCYTES # (AUTO) 0.7 K/uL (0.1-1.30); MONOCYTES % (AUTO) 11.1 % (0.0-11.0); NEUTROPHILS # (AUTO) 2.4 K/uL (1.8-8.9); NEUTROPHILS % (AUTO) 38.9 % (38.5-71.5); PLATELET COUNT (AUTO) 269 K/uL (179-408); RED BLOOD CELL COUNT(AUTO) 3.25 MIL/uL (3.63-4.92); RED CELL DISTRIBUTION WIDTH 14.7 % (12.3-17.7); WHITE BLOOD COUNT (AUTO) 6.1 K/uL (3.8-11.8)
[2023-11-09 07:49] LABS: DIFFERENTIAL COMMENT 1
[2023-11-09 08:00] VITALS: BP 136/78; TEMP 97.9; O2SAT 95
[2023-11-09 08:06] LABS: COMPLEMENT, C3 SERUM 165 mg/dL (82-167); COMPLEMENT, C4 SERUM 48 mg/dL (12-38)
[2023-11-09 11:07] LABS: *ANTI-SCLERODERMA-70 AB <0.2 AI (0.0-0.9); *RNP ANTIBODIES <0.2 AI (0.0-0.9); *SJOGREN'S ANTI-SS-A <0.2 AI (0.0-0.9); *SJOGREN'S ANTI-SS-B <0.2 AI (0.0-0.9); *SMITH ANTIBODIES <0.2 AI (0.0-0.9); ANTI-DNA(DS) AB, QN 1 IU/mL (0-9); ANTI-NUCLEAR AB DIRECT Negative (Negative)
[2023-11-09 12:12] VITALS: BP 109/56; TEMP 97; O2SAT 97
[2023-11-09 16:00] VITALS: BP 127/59; TEMP 98.1; O2SAT 95
[2023-11-09] MEDS ORDERED: ASPI-618 PO (17:21)
[2023-11-09] MEDS ORDERED: METO50TA16 PO (17:21)
[2023-11-10 07:07] LABS: ALBUMIN 2.8 g/dL (2.9-4.4); ALPHA-1-GLOBULIN 0.3 g/dL (0.0-0.4); ALPHA-2-GLOBULIN 0.8 g/dL (0.4-1.0); BETA GLOBULIN 0.9 g/dL (0.7-1.3); GAMMA GLOBULIN 0.7 g/dL (0.4-1.8); GLOBULIN, TOTAL 2.8 g/dL (2.2-3.9); M-SPIKE Not Observed g/dL (Not Observed)
== END 2023-11-09 20:10 | disposition home or self-care (01) | DRG 280 ==
LOC: ER 11:18 → TELE3 15:18 → CCU 21:35 → TELE3 11-07 13:54
PROVIDERS: ADMIT Internal Medicine; ATTEND Internal Medicine
DX: I47.10 Supraventricular tachycardia, unspecified (principal); N17.0 Acute kidney failure with tubular necrosis; I21.A1 Myocardial infarction type 2; U07.1 COVID-19; E44.0 Moderate protein-calorie malnutrition; Z68.1 Body mass index [BMI] 19.9 or less, adult; I13.10 Hypertensive heart and chronic kidney disease without heart failure, with stage 1 through stage 4 chronic kidney disease, or unspecified chronic kidney disease; Z87.891 Personal history of nicotine dependence; M06.9 Rheumatoid arthritis, unspecified; M81.0 Age-related osteoporosis without current pathological fracture; K21.9 Gastro-esophageal reflux disease without esophagitis; Z88.0 Allergy status to penicillin; Z88.1 Allergy status to other antibiotic agents; Z90.710 Acquired absence of both cervix and uterus; Z90.49 Acquired absence of other specified parts of digestive tract; E78.5 Hyperlipidemia, unspecified; I25.10 Atherosclerotic heart disease of native coronary artery without angina pectoris; N18.9 Chronic kidney disease, unspecified; E03.9 Hypothyroidism, unspecified; Z79.890 Hormone replacement therapy; J47.9 Bronchiectasis, uncomplicated
CPT/HCPCS: 36415; 71045; 76770; 83550; 83735; 83970; 84100; 84155; 84165; 84300; 84443; 84484; 85025; 85651; 85730; 86038; 86160; 93005; 93307; A4606; A4663; G0378; J0153; J1650; J3475; J3490; J7040